=== PATIENT | male | born 1945 | race African-American/Black ===

== ENCOUNTER 2017-12-12 15:42 | Emergency (ER) | payer MEDICARE ==
[~2017-12-12] VITALS: Ht 180.3 cm; Wt 115.7 kg
[~2017-12-12 15:42] MED LIST: AZITHROMYCIN250 MG PO; BUMETANIDE1 MG PO; BUMETANIDE2 M1 PO; CATAPRES0.1 MG PO; CLONIDINE HCL0.1 MG PO; DIOVAN160 MG PO; EXFORGE 10-3201 EACH; HUMALOG100 UNIT/1; LEVOTHYROXINE200 MC1 PO; METFORMIN HCL500 MG PO; METOPROLOL TART25 MG PO; NORVASC5 MG PO; NOVOLIN 70100 UNITS/ SC; NOVOLIN R100 UNIT/1; SYNTHROID100 MCG PO; VALIUM10 MG PO; VALIUM5 MG PO; Z CIPRO PO; Z.0.CIPROFLOXACIN500 PO; Z.0.CLINDAMYCIN HC30 PO; Z.0.EXFORGE HCT 101 PO; Z.0.TOPIRAMATE50 MG PO; ZANTAC150 MG PO; ZOFRAN ODT4 MG SL; ZOFRAN8 MG PO; [UNRECOGNIZED DRUG - CODE] IV; [UNRECOGNIZED DRUG - OTHER] PO
--- OUTSIDE RECORDS SUMMARY | 2017-12-12 15:44 | XMS REPORT ---
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 Allergies, Adverse Reactions, Alerts This patient has no known allergies or adverse reactions. Medications This patient has no known medications. Results Test Description Test Time Test Comments Text Results Atomic Results Result Comments CHEST SINGLE (PORTABLE) [place] [id number] Patient Name: RUFINO FUCHS JR MR #: [id number] : 1945 Age/Sex: 72/M Req #: [id number] Adm Physician: Ordered by: MARCI FUENTES MD Report #: [id number] Location: ER Room/Bed: Procedure: [id number] DX/CHEST SINGLE (PORTABLE) Exam Date: 06/02/17 Exam Time: 1330 REPORT STATUS: Signed Examination: Single AP view of the chest. COMPARISON: None. INDICATION: Shortness of breath DISCUSSION: Lines/tubes: None. Lungs: The lungs are well inflated and clear. There is no evidence of pneumonia or pulmonary edema. Pleura: There is no pleural effusion or pneumothorax. Heart and mediastinum: The heart and the mediastinum are unremarkable. Bones and soft tissues: No acute bony abnormalities. IMPRESSION: 1. No acute cardiopulmonary abnormalities. Signed by: Dr. Harper Rodarte M.D. on 06/02/2017 2:06 PM Dictated By: HARPER RODARTE MD 140 Transcribed By: DANETTE on 06/02/171405 COPY TO: MARCI FUENTES MD
[2017-12-12 18:24] LABS: BASOPHILS % 0.7 % (0.0-1.0); EOSINOPHILS # (AUTO) 0.3 (0.0-0.4); EOSINOPHILS % 4.6 % (0.0-6.0); HEMATOCRIT 42.5 % (38.2-49.6); HEMOGLOBIN 14.9 g/dL (14.0-18.0); LYMPHOCYTES # (AUTO) 1.4 (1.0-3.2); LYMPHOCYTES % 26.4 % (18.0-39.1); MEAN CORPUSCULAR HEMOGLOBIN 28.4 pg (28-32); MEAN CORPUSCULAR HGB CONC 35.1 g/dL (31-35); MEAN CORPUSCULAR VOLUME 81.1 fL (81-99); MONOCYTES # (AUTO) 0.4 (0.2-0.8); MONOCYTES % 8.1 % (4.4-11.3); NEUTROPHILS # (AUTO) 3.3 (2.1-6.9); PLATELET COUNT 304 x10e3/uL (140-360); RED BLOOD COUNT 5.24 x10e6/uL (4.3-5.7); RED CELL DISTRIBUTION WIDTH 12.9 % (11.7-14.4)
[2017-12-12 18:30] LABS: INR 1.05; PROTHROMBIN TIME 12.9 seconds (11.9-14.5)
[2017-12-12 18:31] LABS: PARTIAL THROMBOPLASTIN TIME 27.9 seconds (23.8-35.5)
[2017-12-12 18:38] LABS: ALANINE AMINOTRANSFERASE 17 IU/L (0-55); ALBUMIN/GLOBULIN RATIO 1.1 (0.8-2.0); ALKALINE PHOSPHATASE 106 IU/L (40-150); ANION GAP 12.4 mmol/L (8-16); BLOOD UREA NITROGEN 15 mg/dL (7-26); BUN/CREATININE RATIO 11 (6-25); CALCIUM 9.6 mg/dL (8.4-10.2); CARBON DIOXIDE 27 mmol/L (22-29); CHLORIDE 103 mmol/L (98-107); CREATINE KINASE 333 IU/L (30-200); EST GLOMERULAR FILTRATION RATE 60 ML/MIN (60-); GLUCOSE 238 mg/dL (74-118); POTASSIUM 3.4 mmol/L (3.5-5.1); SODIUM 139 mmol/L (136-145)
[2017-12-12] MEDS ORDERED: CLONIDINE HCL 0.1 MG TAB PO ONE (18:45)
--- NOTE | 2017-12-12 20:55 | Diagnostic Imaging Report ---
A single frontal view of the chest. HISTORY: Chest pain, elevated blood pressure COMPARISON: Chest radiograph June 02, 2017 DISCUSSION: Portable technique, limits sensitivity of the exam. Soft tissue attenuation partially limits sensitivity of the exam. Artifacts project at the right upper thorax. Tubes/Lines: None Lungs and pleura: Low lung volumes result in bibasilar vascular crowding, accentuation of the pulmonary interstitial markings, central pulmonary vasculature, and the cardiac silhouette. Allowing for these limitations, the findings are as follows: No evidence of a consolidative pneumonia or pulmonary alveolar edema. No definite pleural effusion or pneumothorax is identified. Heart and mediastinum: The cardiomediastinal silhouette appears unremarkable. Bones: No acute osseous lesion is identified, given this limited exam. IMPRESSION: 1. No acute radiographic abnormality. 2. No significant interval change. Signed by: Dr. Reg George D.O., M.M.M. on 12/12/2017 8:52 PM
== END 2017-12-12 20:17 | disposition left against medical advice (07) ==
LOC: ER 15:42
DX: I10 Essential (primary) hypertension (principal); E11.65 Type 2 diabetes mellitus with hyperglycemia; Z86.73 Personal history of transient ischemic attack (TIA), and cerebral infarction without residual deficits; Z87.891 Personal history of nicotine dependence
CPT/HCPCS: 36415; 71045; 80053; 82550; 82553; 83880; 84484; 85025; 85610; 85730; 93005; 99284

== ENCOUNTER 2018-02-06 10:32 | Emergency (ER) | payer MEDICARE ==
[~2018-02-06] VITALS: Ht 177.8 cm; Wt 108.9 kg
[~2018-02-06 10:32] MED LIST changes: -CLONIDINE HCL 0.3 MG TAB ONE; -METOPROLOL TARTRATE 25 MG TAB ONE
[2018-02-06] MEDS ORDERED: ENALAPRILAT IV INJ 1.25 MG/ML VIAL IV STA (10:55)
[2018-02-06] MEDS ORDERED: HYDRALAZINE HCL 20 MG/ML VIAL ONE (11:04)
[2018-02-06] MEDS ORDERED: NITROGLYCERIN 2% OINT 1 GM PKT ONE (11:04)
[2018-02-06] MEDS ORDERED: HYDRALAZINE HCL 20 MG/ML VIAL IV STA ×2 (11:14→12:35)
[2018-02-06] MEDS ORDERED: NITROGLYCERIN 2% OINT 1 GM PKT TOP ONE (11:15)
[2018-02-06 11:17] LABS: BASOPHILS % 0.8 % (0.0-1.0); EOSINOPHILS # (AUTO) 0.3 (0.0-0.4); EOSINOPHILS % 5.6 % (0.0-6.0); HEMATOCRIT 42.3 % (38.2-49.6); HEMOGLOBIN 14.8 g/dL (14.0-18.0); LYMPHOCYTES # (AUTO) 1.1 (1.0-3.2); MEAN CORPUSCULAR HEMOGLOBIN 28.1 pg (28-32); MEAN CORPUSCULAR VOLUME 80.4 fL (81-99); MONOCYTES # (AUTO) 0.5 (0.2-0.8); MONOCYTES % 9.1 % (4.4-11.3); NEUTROPHILS # (AUTO) 3.1 (2.1-6.9); NEUTROPHILS % 62.1 % (38.7-80.0); PLATELET COUNT 291 x10e3/uL (140-360); RED BLOOD COUNT 5.26 x10e6/uL (4.3-5.7); RED CELL DISTRIBUTION WIDTH 12.9 % (11.7-14.4)
[2018-02-06 11:33] LABS: ALANINE AMINOTRANSFERASE 12 IU/L (0-55); ALBUMIN 3.8 g/dL (3.5-5.0); ALBUMIN/GLOBULIN RATIO 1.1 (0.8-2.0); ALKALINE PHOSPHATASE 88 IU/L (40-150); ANION GAP 13.1 mmol/L (8-16); BLOOD UREA NITROGEN 10 mg/dL (7-26); BUN/CREATININE RATIO 7 (6-25); CALCIUM 9.4 mg/dL (8.4-10.2); CARBON DIOXIDE 32 mmol/L (22-29); CHLORIDE 101 mmol/L (98-107); CREATINE KINASE 236 IU/L (30-200); CREATININE, SERUM 1.35 mg/dL (0.72-1.25); EST GLOMERULAR FILTRATION RATE > 60 ML/MIN (60-); GLUCOSE 135 mg/dL (74-118); POTASSIUM 3.1 mmol/L (3.5-5.1); SODIUM 143 mmol/L (136-145)
--- NOTE | 2018-02-06 11:42 | Diagnostic Imaging Report ---
PROCEDURE: A single AP view of the chest. COMPARISON: None. INDICATIONS: ELEVATED BLOOD PRESSURE FINDINGS: Limited by body habitus. Lines/tubes: None. Lungs: The lungs are well inflated and clear. There is no evidence of pneumonia or pulmonary edema. Pleura: There is no pleural effusion or pneumothorax. Heart and mediastinum: The heart and the mediastinum are unremarkable. Bones: No acute bony abnormality. IMPRESSION: 1. No acute cardiopulmonary disease. Dictated by: Dougie Figueredo M.D. on 02/06/2018 at 11:48 Electronically approved by: Dougie Figueredo M.D. on 02/06/2018 at 11:48
--- NOTE | 2018-02-06 11:51 | Diagnostic Imaging Report ---
EXAMINATION: Head CT without contrast HISTORY: Hypertension, weakness, lethargic COMPARISON: Brain MRI on 09/07/2011 TECHNIQUE: Multidetector axial images were obtained without contrast from the foramen magnum to the vertex . The images were reconstructed using brain and bone algorithms. Thin section brain images were reformatted into coronal and sagittal planes. Image quality: Motion/streaking artifact limits the evaluation of the skull base and posterior cranial fossa. FINDINGS: Parenchyma: 1. Worsening now moderate confluent periventricular white matter hypodensities, most likely nonspecific chronic microvascular ischemic changes, minimal transependymal CSF spread cannot be excluded. 2. No mass or hemorrhage. No CT evidence of acute territorial vascular insult. Extra-axial spaces:No abnormal density. No extra-axial fluid collections Brain volume: Normal for age. Ventricles: New disproportionate ventriculomegaly compared to the size of the cortical sulci, thinning and upward displacement of the corpus callosum, with relative partial effacement of the vertex region sulci. Communicating normal pressure hydrocephalus cannot be excluded in the appropriate clinical setting Arteries: No density suggestive of thrombus. Dural sinuses: No abnormal density. Extra-axial spaces: No abnormal density. Foramen magnum: No mass, Chiari malformation, or basilar invagination. Sella: No obvious mass. Paranasal/mastoid sinuses: Imaged portions unremarkable. Skull/Scalp: No lytic or blastic lesions. No fractures. IMPRESSION: 1. No acute intracranial hemorrhage. 2. New disproportionate ventriculomegaly, communicating normal pressure hydrocephalus is suspected. 3. Progression to moderate chronic microvascular ischemic changes when compared to MRI of 09/07/2011. Signed by: Dr. Sara Michaels M.D. on 02/06/2018 11:47 AM
[2018-02-06] MEDS ORDERED: AMLODIPINE BESYLATE 10 MG TAB ONE (12:40)
[2018-02-07] MEDS ORDERED: AMLODIPINE BESYLATE 10 MG TAB PO SCH (09:00)
== END 2018-02-06 13:00 | disposition left against medical advice (07) ==
LOC: ER 10:32
DX: I10 Essential (primary) hypertension (principal); E11.9 Type 2 diabetes mellitus without complications; I69.831 Monoplegia of upper limb following other cerebrovascular disease affecting right dominant side
CPT/HCPCS: 36415; 70450; 71045; 80053; 82550; 82553; 83880; 84484; 85025; 93005; 99284; J0360

== ENCOUNTER → 2018-02-06 | Outpatient (CLI) | payer MEDICARE ==
[~2018-02-06] MED LIST changes: +CLONIDINE HCL 0.3 MG TAB ONE; +METOPROLOL TARTRATE 25 MG TAB ONE
== END ==
LOC: DX 08:42
PROVIDERS: ATTEND Psychiatry & Neurology Neurology
DX: G91.2 (Idiopathic) normal pressure hydrocephalus (principal)